=== PATIENT | male | born 1945 | race Caucasian/White ===

== ENCOUNTER → 2020-10-03 | Outpatient (CLI) | payer OTHER ==
[~2020-10-03] MED LIST: CLOPIDOGREL75 MG PO; COZAAR 50 MG TA50 M1 PO; CRESTOR40 MG PO; METFORMIN HCL500 M3 PO; PREGABALIN50 MG PO; PROTONIX40 M2 PO; STIOLTO RESPIMAT4 GM INH; TIROSINT112 MCG PO
== END ==
LOC: LAB 08:48
PROVIDERS: ATTEND Ophthalmology
DX: Z01.812 Encounter for preprocedural laboratory examination (principal); Z20.822 Contact with and (suspected) exposure to COVID-19

== ENCOUNTER 2020-10-06 06:05 | Day surgery (SDC) | payer OTHER ==
[~2020-10-06] VITALS: Ht 188 cm; Wt 102.1 kg
--- NOTE | ~2020-10-06 | O ---
[facility] [place] [address] OPERATIVE REPORT Name: NELY GRAY Room #: 150-1 [facility] M.R.#: [id number] Admission: 10/06/20 Attend Phys: Navin Mcmahan MD Discharge: Date of : 45 Report #: [id number] THIS REPORT FOR: cc: RUBI LAFLEUR MD, OSSAMA MD White,Navin Ledbetter MD ~ DATE OF SERVICE: 10/06/2020 CORN SHREDDER: None. PREOPERATIVE DIAGNOSIS: Bilateral upper lid ptosis with superior visual field defects both eyes. POSTOPERATIVE DIAGNOSIS: Bilateral upper lid ptosis with superior visual field defects both eyes. OPERATION PERFORMED: Bilateral upper lid functional ptosis repair. CORN SHREDDER: None. ANESTHESIA: Local with IV sedation. COMPLICATIONS: None. INDICATIONS FOR PROCEDURE: This patient has bilateral upper lid ptosis with superior visual field loss both eyes. Visual field testing demonstrates dense superior visual defects. Retesting with the upper lid elevated shows an improvement in visual field loss of over 30% and in excess of 12 degrees. The current procedure is being undertaken in order to improve the patient's visual function. Informed consent was obtained to include but not limited to the risk of loss of vision, bleeding, infection, scarring, failure to improve the problem and need for further surgery, such as adjustment of lid height. DESCRIPTION OF PROCEDURE: The patient was taken to the operating room, where 2% Xylocaine with epinephrine mixed with equal parts of 0.75% Marcaine with Wydase was administered transcutaneously to each upper lid. The patient was then prepped and draped in the usual sterile fashion. An upper lid crease incision was then made bilaterally and the dissection was carried down until the orbital septum was identified. The orbital septum was then cleared and the preaponeurotic fat identified. The levator aponeurosis was then disinserted from the anterior surface of the tarsal plate and dissected free in the avascular Rios's muscle plane. The aponeurosis was then advanced [address] [address] OPERATIVE REPORT Name: NELY GRAY Room #: 150-1 [facility] M..#: [id number] Admission: 10/06/20 Attend Phys: Navin Mcmahan MD Discharge: Date of : 45 Report #: [id number] and reattached to the anterior surface of the tarsal plate with interrupted mattress 6-0 Novafil sutures on each side, adjusting for height and contour. The redundant aponeurosis was then amputated. The incision was then closed with multiple interrupted 6-0 chromic sutures that were used to recreate an upper lid crease. The skin was closed with a running 6-0 plain gut suture. The wound was then cleaned and dressed with ophthalmic antibiotic ointment followed by a Telfa pad. The patient was transported to the recovery area, having tolerated the procedure well with no anesthesia or operative complications being noted. By: [id number] MD randy Grullon
== END 2020-10-06 09:00 | disposition home or self-care (01) ==
LOC: TBA 06:05 → OR 06:05
PROVIDERS: ATTEND Ophthalmology
DX: H02.413 Mechanical ptosis of bilateral eyelids (principal); H53.462 Homonymous bilateral field defects, left side; H53.461 Homonymous bilateral field defects, right side; I10 Essential (primary) hypertension; E78.00 Pure hypercholesterolemia, unspecified; J43.9 Emphysema, unspecified; I25.2 Old myocardial infarction; D64.9 Anemia, unspecified; K21.9 Gastro-esophageal reflux disease without esophagitis; Z98.890 Other specified postprocedural states; Z79.899 Other long term (current) drug therapy; Z96.653 Presence of artificial knee joint, bilateral; Z98.42 Cataract extraction status, left eye; Z98.41 Cataract extraction status, right eye; Z87.891 Personal history of nicotine dependence
CPT/HCPCS: 50010; 50101; 50386; 50398; 51636; 56531; 62110; 62850; 70005

== ENCOUNTER → 2021-07-13 | Day surgery (SDC) | payer OTHER ==
[~2021-07-13] VITALS: Ht 182.9 cm; Wt 99.8 kg
[~2021-07-13] MED LIST changes: +ASA81BEC PO; +ROSUVASTATIN CA40 MG PO
[2021-07-13 09:22] VITALS: BP 152/85
--- NOTE | 2021-07-17 06:20 | O ---
[facility] [place] [address] OPERATIVE REPORT Name: NELY GRAY Room #: REG [facility]..#: [id number] Admission: 07/13/21 Attend Phys: Navin Mcmahan MD Discharge: Date of : 45 Report #: [id number] THIS REPORT FOR: cc: RUBI LFALEUR MD,RUBI Mcmahan,Navin Ledbetter MD ~ cc: Mervat Valencia DATE OF SERVICE: 07/13/2021 SURGEON: Navin Mcmahan MD SUPERVISOR FEED HOUSE: None. PREOPERATIVE DIAGNOSIS: Bilateral upper lid dermatochalasia with superior visual field defect. POSTOPERATIVE DIAGNOSIS: Bilateral upper lid dermatochalasia with superior visual field defect. OPERATION PERFORMED: Bilateral upper lid functional blepharoplasty. ANESTHESIA: Local with IV sedation. COMPLICATIONS: None. INDICATIONS FOR SURGERY: This patient has acquired upper lid dermatochalasia with superior visual field loss both eyes because of excessive upper lid tissues to include skin and fat. Visual field testing demonstrates dense superior visual defects. Retesting with the upper lid elevated shows an improvement in visual field loss of over 30% and in excess of 12 degrees. The current procedures are undertaken in order to improve the patient's visual function. Informed consent was obtained to include but not limited to the loss of vision, bleeding, infection, scarring, failure to improve the problem and need for further surgery. DESCRIPTION OF OPERATION: The patient was taken to the operating room, where 2% Xylocaine with epinephrine mixed with equal parts of 0.75% Marcaine with Wydase was administered transcutaneously to each upper lid. The patient was then prepped and draped in the usual sterile fashion and a skin-marking pen was then utilized to outline an upper lid crease that was symmetrical on each side. Graefe forceps were then used to quantitate the redundant upper lid skin and it was similarly outlined. The incisions were then made with Alana scissors and a skin-muscle flap removed from each side with high-temp cautery. Hemostasis was achieved with the monopolar cautery as it was throughout the case. The [address] [address] OPERATIVE REPORT Name: NELY GRAY Room #: REG [facility] M.R.#: [id number] Admission: 07/13/21 Attend Phys: Navin Mcmahan MD Discharge: Date of : 45 Report #: [id number] orbital septum was then identified and the central and medial fat pads were inspected. The redundant soft tissue was then sculpted with the monopolar cautery. The upper lid crease was then reformed with tightening of the pretarsal orbicularis muscle. The upper lid crease was then further reformed with multiple interrupted 6-0 chromic sutures. The skin was then closed with a running 6-0 plain gut suture. The wound was then cleaned and dressed with ophthalmic antibiotic ointment and a nonstick dressing. The patient was transported to the recovery area, where cold compresses were applied, having tolerated the procedure well with no anesthetic or operative complications being noted. <ELECTRONICALLY SIGNED> By: Navin Mcmahan MD 07/17/21 0620 [id number] Navin Mcmahan MD /nt
== END | disposition home or self-care (01) ==
LOC: OR 07-06 08:00
PROVIDERS: ATTEND Ophthalmology
DX: H02.834 Dermatochalasis of left upper eyelid (principal); H02.831 Dermatochalasis of right upper eyelid; H53.462 Homonymous bilateral field defects, left side; H53.461 Homonymous bilateral field defects, right side; I10 Essential (primary) hypertension; E11.9 Type 2 diabetes mellitus without complications; E78.00 Pure hypercholesterolemia, unspecified; J44.9 Chronic obstructive pulmonary disease, unspecified; K21.9 Gastro-esophageal reflux disease without esophagitis; I25.2 Old myocardial infarction; Z98.890 Other specified postprocedural states; Z87.891 Personal history of nicotine dependence; Z79.899 Other long term (current) drug therapy; Z96.653 Presence of artificial knee joint, bilateral; Z79.82 Long term (current) use of aspirin; Z20.822 Contact with and (suspected) exposure to COVID-19
CPT/HCPCS: 50010; 50101; 50386; 50398; 51636; 56531; 62110; 62850; 70005